=== PATIENT | female | born 1995 | race Caucasian/White ===

== ENCOUNTER → 2021-08-11 | Outpatient (CLI) | payer OTHER ==
[2021-08-11 16:51] LABS: Partial Thromboplastin Time 27.1 sec (22.0-30.0); Prothrombin Time 10.4 sec (9.0-12.0)
[2021-08-11 17:00] LABS: Appearance,Urine Cloudy (Clear); Bacteria,Urine Rare /hpf; Bilirubin,Urine Negative (Negative); Blood,Urine Negative (Negative); Color,Urine Yellow; Glucose,Urine (UA) Negative (Negative); Ketones,Urine Negative (Negative); Leukocyte Esterase,Urine Negative (Negative); Mucus,Urine Many /hpf; Nitrite,Urine Negative (Negative); PH, Urine 5.5 (5.0-8.0); Protein,Urine Trace (Negative); RBC,Urine 1 /hpf (0-5); Specific Gravity,Urine 1.031 (1.001-1.035); Squamous Epithelial Cell,Urine 10 /hpf (0-4); Urobilinogen,Urine <2.0 mg/dL (<2.0); WBC,Urine 2 /hpf (0-5)
[2021-08-11 17:10] LABS: HCG,Qualitative Serum Not Detected
[2021-08-11 18:03] LABS: AST 34 U/L (14-36); African American GFR (CKD) >90 (>60 ml/min/1.73 sqM); Albumin 4.5 g/dL (3.5-5.0); Albumin/Globulin Ratio 1.7; Alkaline Phosphatase 61 U/L (38-126); Anion Gap 12 mmol/L; Blood Urea Nitrogen 11 mg/dL (7-17); Calcium 9.5 mg/dL (8.4-10.2); Carbon Dioxide 21 mmol/L (22-30); Chloride 105 mmol/L (98-107); Globulin 2.7 g/dL; Glucose 196 mg/dL (74-99); Non-African American GFR(CKD) >90 (>60 ml/min/1.73 sqM); Potassium 3.6 mmol/L (3.5-5.1); Sodium 138 mmol/L (137-145); Total Bilirubin 0.9 mg/dL (0.2-1.3); Total Protein 7.2 g/dL (6.3-8.2)
[2021-08-11 18:10] LABS: ALT 21 U/L (4-34)
--- NOTE | 2021-08-11 21:38 | XR ---
EXAMINATION TYPE: XR chest 2V DATE OF EXAM: 08/11/2021 COMPARISON: NONE HISTORY: Presurgical study. TECHNIQUE: Frontal and lateral views of the chest are obtained. FINDINGS: There is no focal air space opacity, pleural effusion, or pneumothorax seen. The cardiac silhouette size is within normal limits. The osseous structures are intact. IMPRESSION: No acute process.
[2021-08-11 23:28] LABS: HGB 15.3 g/dL (12.0-15.0); MCH 30.3 pg (27.0-32.0); MCHC 33.3 g/dL (32.0-37.0); MCV 91.1 fL (80.0-97.0); Mean Platelet Volume 11.9 fL (9.5-12.2); Platelet Count 203 X 10*3/uL (140-440); RBC 5.05 X 10*6/uL (4.10-5.20); RDW 11.6 % (11.5-14.5); WBC 10.03 X 10*3/uL (4.50-10.00)
[2021-08-13 00:27] LABS: HIV 2 AB Non-Reactive (Non-Reactive); HIV AB P24 Non-Reactive (Non-Reactive); HIV P24 AG Non-Reactive (Non-Reactive)
== END | disposition home or self-care (01) ==
LOC: LABWHC1 16:10
PROVIDERS: ATTEND Internal Medicine
DX: Z01.818 Encounter for other preprocedural examination (principal); Z11.3 Encounter for screening for infections with a predominantly sexual mode of transmission
CPT/HCPCS: 36415; 71046; 80053; 81001; 83036; 84443; 84703; 85027; 85610; 85730; 86803; 87390

== ENCOUNTER → 2021-09-04 | Outpatient (CLI) | payer OTHER ==
[2021-09-04 16:55] LABS: Appearance,Urine Clear (Clear); Bilirubin,Urine Negative (Negative); Blood,Urine Negative (Negative); Color,Urine Yellow; Glucose,Urine (UA) Negative (Negative); Ketones,Urine Negative (Negative); Leukocyte Esterase,Urine Negative (Negative); Nitrite,Urine Negative (Negative); PH, Urine 5.5 (5.0-8.0); Protein,Urine Negative (Negative); Specific Gravity,Urine 1.031 (1.001-1.035); Urobilinogen,Urine <2.0 mg/dL (<2.0)
[2021-09-04 17:08] LABS: Partial Thromboplastin Time 24.7 sec (22.0-30.0); Prothrombin Time 10.3 sec (9.0-12.0)
[2021-09-04 22:59] LABS: HCT 44.6 % (37.2-46.3); HGB 14.8 g/dL (12.0-15.0); MCHC 33.2 g/dL (32.0-37.0); MCV 90.5 fL (80.0-97.0); Mean Platelet Volume 11.2 fL (9.5-12.2); Platelet Count 236 X 10*3/uL (140-440); RBC 4.93 X 10*6/uL (4.10-5.20); RDW 11.3 % (11.5-14.5); WBC 9.67 X 10*3/uL (4.50-10.00)
[2021-09-05 11:33] LABS: ALT 20 U/L (8-44); AST 20 U/L (13-35); African American GFR (CKD) 113.4 (60.0-200.0); Albumin 4.7 g/dL (3.8-4.9); Albumin/Globulin Ratio 2.16 (1.60-3.17); Alkaline Phosphatase 65 U/L (41-126); BUN/Creat Ratio 11.47 Ratio (12.00-20.00); Blood Urea Nitrogen 9.4 mg/dL (9.0-27.0); Calcium 9.5 mg/dL (8.7-10.3); Carbon Dioxide 16.3 mmol/L (21.6-31.8); Chloride 105 mmol/L (96-109); Globulin 2.2 g/dL (1.6-3.3); Glucose 123 mg/dL (70-110); Non-African American GFR(CKD) 97.8 (60.0-200.0); Potassium 3.8 mmol/L (3.5-5.5); Sodium 140 mmol/L (135-145); Total Protein 6.9 g/dL (6.2-8.2)
[2021-09-05 11:41] LABS: HIV 2 AB Non-Reactive (Non-Reactive); HIV AB P24 Non-Reactive (Non-Reactive); HIV P24 AG Non-Reactive (Non-Reactive)
[2021-09-05 11:53] LABS: HCG,Quantitative Serum <0.1 (0.0-6.0)
== END | disposition home or self-care (01) ==
LOC: LABWHC1 16:24
PROVIDERS: ATTEND Plastic Surgery
DX: Z01.812 Encounter for preprocedural laboratory examination (principal)
CPT/HCPCS: 36415; 80053; 81003; 83036; 84443; 84702; 85027; 85610; 85730; 86803; 87390